=== PATIENT | female | born 2000 | race Caucasian/White ===

== ENCOUNTER 2020-10-02 12:39 | Emergency (ER) | payer MEDICAID, SELFPAY ==
[~2020-10-02] VITALS: Ht 170.2 cm; Wt 114.4 kg
[2020-10-02 12:40] VITALS: BP 136/94
--- NOTE | 2020-10-02 13:06 | NUR ---
LATE ENTRY DUE TO PATIENT CARE: PATIENT WALKED BACK FROM TRIAGE WITH CHIEF C/O PAIN IN BUTTOCKS AREA, DENIES FEVER. NO SIGNS OF ACUTE DISTRESS, CALL LIGHT WITHIN REACH.
--- NOTE | 2020-10-02 13:11 | NUR ---
Patient given discharge instructions and prescription and they have confirmed that they understand the instructions. Patient ambulatory with steady gait from ED.
== END 2020-10-02 13:12 | disposition home or self-care (01) ==
LOC: ED 13:05
DX: L02.31 Cutaneous abscess of buttock (principal)
CPT/HCPCS: 99283

== ENCOUNTER 2020-10-06 15:54 | Emergency (ER) | payer MEDICAID ==
[~2020-10-06] VITALS: Ht 170.2 cm; Wt 116.0 kg
--- NOTE | 2020-10-06 17:52 | NUR ---
PT TO ROOM FROM LOBBY.
--- NOTE | 2020-10-06 17:52 | NUR ---
INITIAL PT CONTACT. PT PRESENTS TO ED C/O AN ABSCESS TO THE LEFT BUTTOCK. PT STATES SHE WAS SEEN HERE EARLIER THIS WEEK FOR THE SAME AND GIVEN ABX RX, PT HAS COMPLIANT WITH ABX, WAS TOLD TO RETURN FOR WORSENING SYMPTOMS. "PAIN MUCH WORSE NOW". CALL LIGHT WITHIN REACH AND FRIEND AT BEDSIDE.
[2020-10-06 17:55] VITALS: BP 151/81
[2020-10-06] MEDS ORDERED: LIDOCAINE-MPF 1%, 5ML ONE ×3 (18:05→18:07)
[2020-10-06] MEDS ORDERED: LIDOCAINE-MPF 1%, 5ML INFIL ONE ×2 (18:30)
[2020-10-06] MEDS ORDERED: HYDROcodone/APAP 5/325 TABLET PO ONE (18:48)
[2020-10-06] MEDS ORDERED: CEPHALEXIN 500 MG CAPSULE ONE (18:54)
[2020-10-06] MEDS ORDERED: HYDROcodone/APAP 5/325 TABLET ONE (18:55)
--- NOTE | 2020-10-06 18:57 | NUR ---
REPORT GIVEN TO KAILEE SANON
[2020-10-06] MEDS ORDERED: CEPHALEXIN 500 MG CAPSULE PO ONE (19:00)
== END 2020-10-06 19:06 | disposition home or self-care (01) ==
LOC: ED 18:50
DX: L05.01 Pilonidal cyst with abscess (principal)
CPT/HCPCS: 10080; 99283

== ENCOUNTER 2020-10-08 11:31 | Emergency (ER) | payer MEDICAID ==
[~2020-10-08] VITALS: Ht 170.2 cm; Wt 114.6 kg
[2020-10-08 11:56] VITALS: BP 114/68
--- NOTE | 2020-10-08 13:09 | NUR ---
Patient given discharge instructions and they have confirmed that they understand the instructions. Patient ambulatory with steady gait.
== END 2020-10-08 13:10 | disposition home or self-care (01) ==
LOC: ED 12:10
DX: L02.31 Cutaneous abscess of buttock (principal); Z48.01 Encounter for change or removal of surgical wound dressing
CPT/HCPCS: 99281